=== PATIENT | female | born 1980 | race Caucasian/White ===

== ENCOUNTER 2025-02-23 07:19 | Outpatient (CLI) | payer OTHER, SELFPAY ==
--- NOTE | ~2025-02-23 | MM_ITS ---
EXAMINATION: MM screening [facility] BI w maged INDICATION: Asymptomatic, referred for screening mammogram COMPARISON: None available TECHNIQUE: Digital Breast Tomosynthesis CC, MLO views of Both breasts were obtained with computer-ai ded detection to assist in interpretation of the study. FINDINGS: The breasts are heterogeneously dense, which may obscure small masses. There is an asymmetry seen on the cc view in the Lateral right breast at anterior depth, centered at 2.5 cm posterior to the nipple. Biopsy clip in the right breast. Elsewhere, there are no mammographic features of malignancy. IMPRESSION: 1. Right breast Asymmetry. 2. No evidence of malignancy in the Left breast. RECOMMENDATION: Right breast Diagnostic mammogram with true lateral, appropriate spot compression views and an ultras ound if needed. BI-RADS Category 0: Incomplete: Needs additional imaging evaluation. Reviewed, dictated and finalized at location B. IMPRESSION: 1. Right breast Asymmetry. 2. No evidence of malignancy in the Left breast. RECOMMENDATION: Right breast Diagnostic mammogram with true lateral, appropriate spot compressi on views and an ultrasound if needed. BI-RADS Category 0: Incomplete: Needs additional imaging evaluation.
--- OUTSIDE RECORDS SUMMARY | 2025-02-23 07:26 | XMS_ITS | Encounter Summary ---
Author Organization [facility] Address [address] [facility] [place] [address] Care Team Providers Care Ela Teacher Name Role Phone Niles Yin MOYA Primary Care Provider [phone]- [phone] PersonMoira Primary Care Provid er Encounter Details Date Type Department Care Team (Late st Contact Info) Description 06/02/2018 Lab Requisition [facility] [address] [place] [id number] Unlisted, Ordering Provider, Social History Tobacco Use Types Packs/Day Years Used Date Smoking Tobacco: Never Assessed Comments Unknown Sex and Gender Information Value Date Recorded Sex Assigned at Not on file Legal Sex Female 3:08 PM CDT Gender Identity Not on file Sexual Orientation Not on file documented as of this encounter Plan of Treatment Not on file documented as of this encounter Procedures Procedure Name Priority Date/Time Associated Diagnosis Comments GLUCOSE VITALITY Routine 06/03/2018 7:40 AM CDT HEMOGLOBIN A1C Routine 06/03/2018 7:40 AM CDT LIPID PROFILE Routine 06/03/2018 7:40 AM CDT documented in this encounter Results * HEMOGLOBIN A1C (06/03/2018 7:40 AM CDT) Hemoglobin A1c 5.5 4.4 - 6.3 % 06/03/2018 11:11 AM CDT [facility] Estimated Average Glucose 111 mg/dL 06/03/2018 11:11 AM [facility] Comment: HbA1c Interpretation: Treatment target values recommended by ADA and other clinical organizations should be used to evaluate metabolic control in patients. Treatment Target Values: Normal : < 5.7% Pre-diabetes: 5.7-6.4% Diabetes: Equal to or greater than 6.5% Reference: [place] Diabetes Association Standards of Care in Diabetes -2014 In patients 70 years and older consider HbA1c target range of 7.0-7.5% Reference: Diabetes Mellitus in Older People: Position Statement on behalf of the International Association of Gerontology and Geriatrics (IAGG), the Diabetes Working Democrat for Older People (EDWPOP), and the International Task Force of Experts in Diabetes. Colin Gonzalez et al. J [place] Medical Directors Association. 2012 Test results diagnostic of diabetes should be repeated for confirmation. The Tosoh G8 assay for the measurement of HbA1c is a National Glycohemoglobin Standardization Program (NGSP)certified method. Results for patients with HbE disease should be interpreted with caution as this hemoglobinopathy has been shown to interfere with the Tosoh G8 assay. Blood BLOOD SPECIMEN / Unknown 06/03/2018 7:40 AM CDT 06/03/2018 9:36 AM CDT us Ordering Provider Unlisted MD LAB - CHEMISTRY OR DERABLES Final Result Performing Organization Address City/State/[facility] Co de Phone Number [address] [phone] * LIPID PROFILE (06/03/2018 7:40 AM CDT) [facility] Cholesterol Total 147 <200 mg/dL 06/03/2018 10:53 AM [facility] HDL 58 >40 mg/dL 06/03/2018 10:53 AM [facility] Comment: ATP III Classification of HDL Cholesterol: <40 mg/dL: Considered a major risk factor. >60 mg/dL: Considered a negative risk factor. LDL Calculated 75 <100 mg/dL 06/03/2018 10:53 AM [facility] Comment: ATP III Classification of LDL Cholesterol: <100 mg/dL: Optimal 100 - 129 mg/dL: Near Optimal/Above Optimal 130 - 159 mg/dL: Borderline High 160 - 189 mg/dL: High >190 mg/dL: Very High Triglycerides 72 <150 mg/dL 06/03/2018 10:53 AM CDT [facility] Comment: ATP III Classification of Triglycerides: <150 mg/dL: Normal 150 - 199 mg/dL: Borderline High 200 - 400 mg/dL: High >500 mg/dL: Very High Blood BLOOD SPECIMEN / Unknown 06/03/2018 7:40 AM CDT 06/03/2018 9:36 AM CDT Ordering Provider Unlisted MD LAB - CHEMISTRY OR DERABLES Final Result [address] [phone] * GLUCOSE VITALITY (06/03/2018 7:40 AM CDT) Glucose 83 70 - 115 mg/dL 06/03/2018 10:14 AM CDT [facility] Blood BLOOD SPECIMEN / Unknown 06/03/2018 7:40 AM CDT 06/03/2018 9:36 AM CDT Ordering Provider Unlisted MD LAB - CHEMISTRY OR DERABLES Final Result Performing Organization Address City/[facility] Co de Phone Number [address] [phone] documented in this encounter Visit Diagnoses Not on filedocumented in this encounter Additional Health Concerns Infection Onset Date Last Indicated Resolved Time COVID-19 Under Investigation 08/15/2021 08/15/2021 08/16/2021 6:38 AM INTERNAL MEDICINE DOCTOR documented as of this encounter Care Teams Ela Teacher Relationship Specialty Start Date End Date Yin Cage APRN-CNP [address] [place] [address] PCP - General 03/12/22 12/11/22 Moira Chang APRN-CNP [address] [place] [address] PCP - General 12/12/22 documented as of this encounter
--- OUTSIDE RECORDS SUMMARY | 2025-02-23 07:26 | XMS_ITS | Encounter Summary ---
Author Organization [facility] Address [address] [facility] [place] [address] Care Team Providers Care Machine Repair Person Name Role Phone Niles Yin MOYA Primary Care Provider +1- [phone] PersonMoira Primary Care Provid er Encounter Details Date Type Department Care Team (Late st Contact Info) Description 06/03/2019 Lab Requisition [facility] [address] [place] [id number] Social History Tobacco Use Types Packs/Day Years Used Date Smoking Tobacco: Some Days Cigarettes 0.5 8 Smokeless Tobacco: Never Alcohol Use Standard Drinks/Week Comments Yes 0 (1 standard drink = 0.6 oz pur e alcohol) Comments Unknown Sex and Gender Information Value Date Recorded Sex Assigned at Not on file Legal Sex Female 3:08 PM CDT Gender Identity Not on file Sexual Orientation Not on file documented as of this encounter Plan of Treatment Not on file documented as of this encounter Procedures Procedure Name Priority Date/Time Associated Diagnosis Comments GLUCOSE VITALITY Routine 06/04/2019 8:24 AM CDT HEMOGLOBIN A1C Routine 06/04/2019 8:24 AM CDT LIPID PROFILE Routine 06/04/2019 8:24 AM CDT documented in this encounter Results * HEMOGLOBIN A1C (06/04/2019 8:24 AM CDT) Hemoglobin A1c 5.3 4.4 - 6.3 % 06/04/2019 3:40 PM [facility] Estimated Average Glucose 105 mg/dL 06/04/2019 3:40 PM [facility] Comment: HbA1c Interpretation: Treatment target values recommended by ADA and other clinical organizations should be used to evaluate metabolic control in patients. Treatment Target Values: Normal : < 5.7% Pre-diabetes: 5.7-6.4% Diabetes: Equal to or greater than 6.5% Reference: [place] Diabetes Association Standards of Care in Diabetes -2014 In patients 70 years and older consider HbA1c target range of 7.0-7.5% Reference: Diabetes Mellitus in Older People: Position Statement on behalf of the International Association of Gerontology and Geriatrics (IAGG), the Diabetes Working Constitution Party for Older People (EDWPOP), and the International Task Force of Experts in Diabetes. Colin Gonzalez et al. J [place] Medical Directors Association. 2012 Test results diagnostic of diabetes should be repeated for confirmation. The Sebia Capillary 2 assay for the measurement of HbA1c is a National Glycohemoglobin Standardization Program (NGSP)certified method. Blood BLOOD SPECIMEN / Unknown Lab Venipuncture / Unknown 06/04/2019 8:24 AM CDT 06/04/2019 8:49 AM CDT us LAB - CHEMISTRY ORDERABLES Final Result [address] [phone] * LIPID PROFILE (06/04/2019 8:24 AM CDT) Cholesterol Total 166 <200 mg/dL 06/04/2019 9:27 AM [facility] HDL 70 >40 mg/dL 06/04/2019 9:27 AM [facility] Comment: ATP III Classification of HDL Cholesterol: <40 mg/dL: Considered a major risk factor. >60 mg/dL: Considered a negative risk factor. LDL Calculated 85 <100 mg/dL 06/04/2019 9:27 AM [facility] Comment: ATP III Classification of LDL Cholesterol: <100 mg/dL: Optimal 100 - 129 mg/dL: Near Optimal/Above Optimal 130 - 159 mg/dL: Borderline High 160 - 189 mg/dL: High >190 mg/dL: Very High Triglycerides 53 <150 mg/dL 06/04/2019 9:27 AM CDT [facility] Comment: ATP III Classification of Triglycerides: <150 mg/dL: Normal 150 - 199 mg/dL: Borderline High 200 - 400 mg/dL: High >500 mg/dL: Very High Blood BLOOD SPECIMEN / Unknown Lab Venipuncture / Unknown 06/04/2019 8:24 AM CDT 06/04/2019 8:49 AM CDT us LAB - CHEMISTRY ORDERABLES Final Result [address] [phone] * GLUCOSE VITALITY (06/04/2019 8:24 AM CDT) Glucose 95 70 - 115 mg/dL 06/04/2019 9:10 AM CDT [facility] Blood BLOOD SPECIMEN / Unknown Lab Venipuncture / Unknown 06/04/2019 8:24 AM CDT 06/04/2019 8:49 AM CDT us LAB - CHEMISTRY ORDERABLES Final Result Performing Organization Address City/[facility]/ZIP Co de Phone Number [address] [phone] documented in this encounter Visit Diagnoses Not on filedocumented in this encounter Additional Health Concerns Infection Onset Date Last Indicated Resolved Time COVID-19 Under Investigation 08/15/2021 08/15/2021 08/16/2021 6:38 AM SOFTWARE APPLICATIONS ARCHITECT documented as of this encounter Care Teams Machine Repair Person Relationship Specialty Start Date End Date Yin Cage APRN-CNP [address] [place] [phone] PCP - General 03/12/22 12/11/22 Moira Chang APRN-CNP [address] [place] [address] PCP - General 12/12/22 documented as of this encounter
--- OUTSIDE RECORDS SUMMARY | 2025-02-23 07:27 | XMS_ITS | Clinical Summary ---
Author Organization [facility] Address [facility] [place] [address] Care Team Providers Care South Asian History Professor Name Role Phone None, Provider MD Primary Care Provider Unavaila ble Allergies No known active allergies Medications escitalopram 20 MG tablet Take 20 mg by mouth daily. Active Social History Tobacco Use Types Packs/Day Years Used Date Smoking Tobacco: Former Cigarettes Q uit: 05/05/2021 Smokeless Tobacco: Never Alcohol Use Standard Drinks/Week Comments Not Currently 0 (1 standard drink = 0.6 oz pur e alcohol) Comments No Sex and Gender Information Value Date Recorded Sex Assigned at Not on file Legal Sex Female 5:51 PM CDT Gender Identity Not on file Sexual Orientation Not on file Last Filed Vital Signs Vital Sign Reading Time Taken Comments Blood Pressure 127/70 08/23/2021 7:00 AM HYDRATOR Pulse 78 08/23/2021 7:00 AM HYDRATOR Temperature 36.4 C (97.6 F) 08/23/2021 5:58 AM HYDRATOR Respiratory Rate 18 08/23/2021 7:00 AM HYDRATOR Oxygen Saturation 97% 08/23/2021 7:00 AM HYDRATOR Inhaled Oxygen Concentration - - Weight 99.8 kg (220 lb) 08/23/2021 5:58 AM HYDRATOR Height 170.2 cm (5' 7) 08/23/2021 5:58 AM HYDRATOR Body Mass Index 34.46 08/23/2021 5:58 AM HYDRATOR Plan of Treatment Health Maintenance Due Date Last Done Comments Cervical Cancer Screening Pa p Smear (Age 30 to 64) Every 3 Years 1979 Colorectal Cancer Screening Colonoscopy (10 Years) 1979 Annual Physical 1982 Hepatitis C 1997 Hepatitis B Vaccines (1 of 3 - 19+ 3-dose series) 1998 HPV Vaccines (1 - 3-dose SCD M series) 2006 Cervical Cancer Screening Pa p with HPV Testing (Age 30 to 64) Every 5 Years 2009 Cervical Cancer Screening wi th HPV 2009 Mammogram Screening 2019 COVID-19 Vaccine (3 - 2023-2 5 season) 2024 09/02/2020, 08/12/2020 DTaP, Tdap and Td Vaccines ( 2 - Td or Tdap) 07/07/2031 07/07/2021 Meningococcal B Vaccine Aged Out No l onger eligible based on patient's age to complete this topic Meningococcal Vaccine Aged Out No zenaida servando eligible based on patient's age to complete this topic Pneumococcal Vaccine: Pediatrics (0 to 5 Years) and At-Risk Patients (6 to 49 Years) Aged Out No longer eligible b ased on patient's age to complete this topic RSV Immunizations Under 20 Months Aged Out No longer eligible b ased on patient's age to complete this topic Additional Health Concerns Infection Onset Date Last Indicated MRSA 08/25/2018 08/25/2018 Insurance [facility] Care Teams South Asian History Professor Relationship Specialty Start Date End Date None, Provider, PCP - General 09/30/20
--- OUTSIDE RECORDS SUMMARY | 2025-02-23 07:27 | XMS_ITS | Clinical Summary ---
Author Organization [facility] [employer] Address [address] [place] [address] Care Team Providers Care Log Rider Name Role Phone Person, Moira MOYA Primary Care Provid er Source Comments [facility] [employer],non-owned Affiliates and Associated Physician Practices is amultiple site organization consisting of ambulatory clinics and hospital sitesin [place], [place], [place] and [place]. This disclosure is being madepursuant to the Care Everywhere program and may not contain all information available regarding this patient. Last updated 18.[facility] [employer] Allergies No known active allergies Medications * Be aware that medications may not be up to date on this document. Alwaysverify current medications with the patient. [employer] COVID-19 Ag Home Test KIT 11/16/2022 Active escitalopram (Lexapro) 20 MG tabletIndication s:Depression, unspecified depression type Take 1 (one) tablet by mouth once daily 90 tablet 3 07/10/2023 Active ARIPiprazole (Abilify) 5 MG tabletIndication s:Depression, unspecified depression type Take 1 (one) tablet by mouth at bedtime 90 tablet 4 07/10/2023 Active Active Problems Problem Noted Date Diagnosed Date Depression 01/17/2022 Class 2 obesity without seri ous comorbidity with body mass index (BMI) of 35.0 to 35.9 in adult 01/17/2022 Sleep starts 01/17/2022 Exposure to SARS-associated coronavirus 08/15/19 22 Breast mass, right 08/10/2019 Family history of breast cancer 08/11/2018 Immunizations Immunization Administration Dates Next Due PhoneTell primary monoval ent 12+ yr 0.3mL Purple cap 09/05/2021,09/02/2020,08/12/2020 INFLUENZA VACCINE 06/14/2022,,04/28/2019,2017 INFLUENZA VACCINE, QUADR. (F LUZONE; FLULAVAL; FLUARIX; AFLURIA QUADRIVALENT; 6MO+), 0.5 ML (IIV4) 05/25/2020 TDAP (7yrs+) 07/07/2021 Family History Medical History Relation Name Comments Cystic Fibrosis Daughter 1 15 None Known Father Cancer - Breast Maternal Aunt None Known Mother Cancer - Breast Paternal Aunt Cancer - Breast Paternal Grandmother Relation Name Status Comments Daughter 1 15 Alive Daughter 2 12 Alive Father Maternal Aunt Mother Paternal Aunt Paternal Grandmother Social History Tobacco Use Types Packs/Day Years Used Date Smoking Tobacco: Former Cigarettes 0.5 20 0 09/2001 - 09/2021 Smokeless Tobacco: Never Tobacco Cessation:Counseling Given: Not Answered Alcohol Use Standard Drinks/Week Comments Not Currently 0 (1 standard drink = 0.6 oz pur e alcohol) PHQ-2 Answer Date Recorded Patient Health Questionnaire-2 Score 3 07/10/2023 Comments No Sex and Gender Information Value Date Recorded Sex Assigned at Not on file Legal Sex Female 3:08 PM CDT Gender Identity Not on file Sexual Orientation Not on file Last Filed Vital Signs Vital Sign Reading Time Taken Comments Blood Pressure 125/83 07/10/2023 10:29 AM SKI EDGE PAINTER Pulse 73 07/10/2023 10:29 AM SKI EDGE PAINTER Temperature 36.6 C (97.8 F) 07/10/2023 10:29 AM SKI EDGE PAINTER Respiratory Rate 20 07/07/2021 9:27 AM SKI EDGE PAINTER Oxygen Saturation 98% 07/10/2023 10:29 AM SKI EDGE PAINTER Inhaled Oxygen Concentration - - Weight 100.7 kg (222 lb) 07/10/2023 10:29 AM SKI EDGE PAINTER Height 170.2 cm (5' 7) 07/10/2023 10:29 AM SKI EDGE PAINTER Body Mass Index 34.77 07/10/2023 10:29 AM SKI EDGE PAINTER Plan of Treatment Health Maintenance Due Date Last Done Comments MARITZA (AGES 45-75) - COLON CA SCREENING 1979 COLON MONITORING 1979 COLONOSCOPY - COLON CA SCREENING 1979 CT COLONOGRAPHY - COLON CA SCREENING 1979 Colorectal Cancer Screening 1979 FIT - COLON CA SCREENING 1979 FLEX SIG - COLON CA SCREENING 1979 HEPATITIS B VACCINE (1 of 3 - 19+ 3-dose series) 1998 PAP SMEAR 2000 HPV VACCINE (1 - 3-dose SCDM series) 2006 COVID-19 VACCINE ( season) 2024 09/05/2021, 09/05/2021, 09/02/2020, Additional history exists DEPRESSION SCREENING 08/05/2024 07/10/2023, 07/09/2022, 02/06/2022, Additional history exists SCREENING FOR DIABETES 01/09/2025 , 01/09/2022, 08/23/2021, Additional history exists MAMMOGRAM 02/07/2025 02/07/2023, 07/0 12/2021, 08/10/2019, Additional history exists INFLUENZA VACCINE (#1) 2025 , 04/26/2021, 05/25/2020, Additional history exists LIPID TESTING 01/09/2027 01/09/2022, 05/07, 06/03/2018, Additional history exists ZOSTER VACCINE (1 of 2) 2029 DTAP/TDAP/TD VACCINES (2 - Td or Tdap) 07/07/2031 07/07/2021 HEPATITIS C SCREENING Completed 06/05/2018 (Done Outside Per Patient) HIV SCREENING Completed 06/05/2018 (Done Outside Per Patient) HIB VACCINE Aged Out No longer eligi ble based on patient's age to complete this topic MENINGOCOCCAL (Group B) VACCINE SHARED DECISION-MAKING Aged Out No longer eligible based on patient's age to complete this topic MENINGOCOCCAL GROUPS A/C/Y/W VACCINE Aged Out No longer eligible based on patient's age to complete this topic PNEUMOCOCCAL VACCINE Aged Out No long er eligible based on patient's age to complete this topic Procedures Procedure Name Priority Date/Time Associated Diagnosis Comments MAMMO BILAT SCREENING W KARON Routine 02/07/2023 11:50 AM CDT Breast cancer screening by mammogram COMPREHENSIVE METABOLIC PANEL Routine 01/09/2022 2:18 PM CDT Healthcare maintenance Class 2 obesity without serious comorbidity with body mass index (BMI) of 35.0 to 35.9 in adult, unspecified obesity type LIPID PROFILE Routine 01/09/2022 2:18 PM CDT Class 2 obesity without serious comorbidity with body mass index (BMI) of 35.0 to 35.9 in adult, unspecified obesity type from Last 3 Months or Most Recently Relevant to Health Maintenance Results * MAMMO BILAT SCREENING W KARON (02/07/2023 11:50 AM CDT) Anatomical Region Laterality Modality Breast Bilateral Mammography 02/07/2023 2:16 PM CDT Impressions 02/07/2023 2:28 PM CDT : Benign mammogram, without evidence of malignancy. Dense breast parenchyma. RECOMMENDATION: 1. Screening mammography in one year, pending no interval breast concerns. 2. Given her dense breast parenchyma and moderate increased risk of developing breast cancer, consider annual complete breast ultrasound or contrasted breast MRI scan for supplemental screening. This can be alternated at 6 month intervals with mammography or performed near the time of screening mammography. If there are any questions, please call [phone]. OVERALL ASSESSMENT: BI-RADS CATEGORY 2: BENIGN. > Interpreting Provider: Radha Espinal MD on 02/07/2023 2:28 PM Narrative 02/07/2023 2:28 PM CDT EXAMINATION: DIGITAL MAMMO BILAT SCREENING W KARON AND WITH CAD LOCATION: [facility] EXAM DATE: 02/07/2023 HISTORY: Screening. Family history of breast cancer in a maternal aunt. Previous benign right breast biopsy. RISK ASSESSMENT CALCULATION: Patient completed a breast cancer risk assessment during her appointment. Based upon the information she provided and her mammographic breast density, her lifetime risk of developing breast cancer is 19.8 % (Average Risk <15%; Intermediate / Moderate Risk 15-19%; High Risk > 20%). Given her moderate increased risk of developing breast cancer and dense breast parenchyma, consider complete breast ultrasound for supplemental screening and this can be performed at 6-month intervals with screening mammography or the time of screening mammography. For further information, please call [phone]. COMPARISON: Compare prior mammograms back to 2019. TECHNIQUE: Tomosynthesis (3D) and reconstructed synthetic 2-D images acquired and reviewed in the bilateral craniocaudal and mediolateral oblique projections.. A total of images obtained. Computer-aided detection (CAD) was utilized. BREAST PARENCHYMAL COMPOSITION: Category C: The breasts are heterogeneously dense which may obscure small masses. FINDINGS: There are no suspicious findings or evidence of malignancy on mammography. Biopsy clip in the right breast. There is no significant change from the prior. us Moira Yolaneetu Chang BAKING FACTORY WORKER-TIRE ASSEMBLER MAMMO ORDERABLES Fin al Result * (ABNORMAL) COMPREHENSIVE METABOLIC PANEL (01/09/2022 2:18 PM CDT) Glucose 73 65 - 99 mg/dL [facility] INSURANCE BILL BUN 4(L) 6 - 24 mg/dL [facility] INSURANCE BILL Creatinine 0.74 0.57 - 1.00 mg/dL [facility] INSURANCE BILL eGFR by CKD-EPI 104 >59 mL/min/1.7 3 [facility] INSURANCE BILL BUN/Creatinine Ratio 5(L) 9 - 23 [facility] INSURANCE BILL Sodium 136 134 - 144 mmol/L [facility] INSURANCE BILL Potassium 4.0 3.5 - 5.2 mmol/L [facility] INSURANCE BILL Chloride 99 96 - 106 mmol/L [facility] INSURANCE BILL CO2 19(L) 20 - 29 mmol/L [facility] INSURANCE BILL Calcium 9.3 8.7 - 10.2 mg/dL [facility] INSURANCE BILL Protein Total 6.9 6.0 - 8.5 g/dL [facility] INSURANCE BILL Albumin 4.7 3.8 - 4.8 g/dL [facility] INSURANCE BILL Globulin Total 2.2 1.5 - 4.5 g/dL [facility] INSURANCE BILL Albumin/Globulin Ratio 2.1 1.2 - 2.2 [facility] INSURANCE BILL Bilirubin Total 0.3 0.0 - 1.2 mg/dL [facility] INSURANCE BILL Alkaline Phosphatase 54 44 - 121 IU/L [facility] INSURANCE BILL AST 15 0 - 40 IU/L [facility] INSURANCE BILL ALT 12 0 - 32 IU/L [facility] INSURANCE BILL Comment:FASTING Blood BLOOD SPECIMEN / Unknown 01/09/2022 2:18 PM CDT 01/09/2022 Narrative Resulting Agency Comment Lab Testing performed at: [facility] [address] [id number] Zoila Yong BAKING FACTORY WORKER-TIRE ASSEMBLER LAB - CHEMISTRY ORDERAB LES Final Result Performing Organization Address City/[facility] Co de Phone Number [facility] INSURANCE BILL [address] [place] [address] * (ABNORMAL) LIPID PROFILE (01/09/2022 2:18 PM CDT) Cholesterol 199 100 - 199 mg/dL [facility] INSURANCE BILL Triglycerides 85 0 - 149 mg/dL [facility] INSURANCE BILL HDL Cholesterol 58 >39 mg/dL [facility] INSURANCE BILL VLDL Calculated 15 5 - 40 mg/dL [facility] INSURANCE BILL LDL Calculated 126(H) 0 - 99 mg/dL [facility] INSURANCE BILL Comment NOT NEEDED [facility] INSURANCE BILL Comment: FASTING Ancillary determined the test is not needed. Blood BLOOD SPECIMEN / Unknown 01/09/2022 2:18 PM CDT 01/09/2022 Narrative Resulting Agency Comment Lab Testing performed at: [facility] [address] [id number] Zoila Yong BAKING FACTORY WORKER-TIRE ASSEMBLER LAB - CHEMISTRY ORDERAB LES Final Result Performing Organization Address City/[facility] Co de Phone Number [facility] INSURANCE BILL [address] [place] [address] from Last 3 Months or Most Recently Relevant to Health Maintenance Insurance Care Teams Log Rider Relationship Specialty Start Date End Date Person, NITA Gaines PCP - General 12/12/22
== END 2025-02-23 07:20 | disposition home or self-care (01) ==
LOC: CHSIMG 07:24
PROVIDERS: Visit Provider Nurse Practitioner
DX: Z12.31 Encounter for screening mammogram for malignant neoplasm of breast (principal); R92.8 Other abnormal and inconclusive findings on diagnostic imaging of breast
CPT/HCPCS: 77063; 77067

== ENCOUNTER 2025-03-04 09:41 | Outpatient (CLI) | payer OTHER, SELFPAY ==
--- NOTE | ~2025-03-04 | MMUS_ITS ---
EXAMINATION: MM diagnostic calvin RT w maged, US breast RT complete HISTORY: Follow-up right breast asymmetry. TECHNIQUE: Additional 3-D tomosynthesis images of the right breast were performed and synthetic 2-D i mages were generated. CAD analysis was submitted and interpreted. High resolution complete right giovany st ultrasound was performed. COMPARISON: 02/23/2025 BREAST PARENCHYMAL COMPOSITION: Dense: The breasts are heterogeneously dense, which may obscure small masses. FINDINGS: MAMMOGRAPHIC FINDINGS: There is a obscured mass in the lower outer quadrant of the right breast, anterior third. There are n o suspicious calcifications or architectural distortion. ULTRASOUND: Complete US of all 4 quadrants of the right breast/s and retroareolar region was reviewed. At 12:00 n ear the nipple there is a 9 mm cyst with low-level internal echoes. At 12:00 near the nipple there is an 11 mm cyst. At 10:00, 6 cm from the nipple there is a 9 mm cyst. IMPRESSION: 1. No evidence for malignancy in the right breast. Benign cysts. 2. Routine yearly screening mammogram and regular clinical breast examination are recommended. BI-RADS Category 2: Benign finding(s). Reviewed, dictated and finalized at location B. IMPRESSION: 1. No evidence for malignancy in the right breast. Benign cysts. 2. Routine yearly screening mammogram and regular clinical breast examination a re recommended. BI-RADS Category 2: Benign finding(s).
--- OUTSIDE RECORDS SUMMARY | 2025-03-04 09:53 | XMS_ITS | Clinical Summary ---
Author Organization [facility] Address [address] [place] [address] Care Team Providers Care Ceramist Name Role Phone Person, Moira MOYA Primary Care Provid er Source Comments [facility],non-owned Affiliates and Associated Physician Practices is amultiple site organization consisting of ambulatory clinics and hospital sitesin [place], [place], [place]. This disclosure is being madepursuant to the Care Everywhere program and may not contain all information available regarding this patient. Last updated 18.[facility] Allergies No known active allergies Medications * [...] 08/11/2018 Immunizations Immunization Administration Dates Next Due [employer] primary monoval ent 12+ yr 0.3mL Purple [...] Comments Blood Pressure 125/83 07/10/2023 10:29 AM SET KEY DRIVER Pulse 73 07/10/2023 10:29 AM SET KEY DRIVER Temperature 36.6 C (97.8 F) 07/10/2023 10:29 AM SET KEY DRIVER Respiratory Rate 20 07/07/2021 9:27 AM SET KEY DRIVER Oxygen Saturation 98% 07/10/2023 10:29 AM SET KEY DRIVER Inhaled Oxygen Concentration - - Weight 100.7 kg (222 lb) 07/10/2023 10:29 AM SET KEY DRIVER Height 170.2 cm (5' 7) 07/10/2023 10:29 AM SET KEY DRIVER Body Mass Index 34.77 07/10/2023 10:29 AM SET KEY DRIVER Plan of Treatment Health Maintenance Due Date [...] If there are any questions, please call [phone]. OVERALL ASSESSMENT: BI-RADS CATEGORY 2: BENIGN. > Interpreting Provider: Radha Espinal MD on 02/07/2023 2:28 PM Narrative 02/07/2023 2:28 PM CDT EXAMINATION: DIGITAL MAMMO BILAT SCREENING W KARON AND WITH CAD LOCATION: [facility] [place] [facility] EXAM DATE: 02/07/2023 HISTORY: Screening. Family history [...] screening mammography. For further information, please call [phone]. COMPARISON: Compare prior mammograms back to 2019. [...] from the prior. us Moira Yolaneetu Chang APPLIED RESEARCH DIRECTOR-ZINC PLATE CUTTER MAMMO ORDERABLES Fin al Result * (ABNORMAL) [...] Resulting Agency Comment Lab Testing performed at: [email or web address] [address] [id number] Zoila Yong APPLIED RESEARCH DIRECTOR-ZINC PLATE CUTTER LAB - CHEMISTRY ORDERAB LES Final Result Performing Organization Address City/[facility] Co de Phone Number [facility] INSURANCE BILL [address] [place] [address] * (ABNORMAL) LIPID PROFILE (01/09/2022 2:18 PM [...] Resulting Agency Comment Lab Testing performed at: [email or web address] [address] [id number] Zoila Yong APPLIED RESEARCH DIRECTOR-ZINC PLATE CUTTER LAB - CHEMISTRY ORDERAB LES Final Result Performing Organization Address City/[facility] Co de Phone Number [facility] INSURANCE BILL [address] [place] [address] from Last 3 Months or Most Recently Relevant to Health Maintenance Insurance Care Teams Ceramist Relationship Specialty Start Date End Date Person, NITA Gaines PCP - General 12/12/22
--- OUTSIDE RECORDS SUMMARY | 2025-03-04 09:53 | XMS_ITS | Encounter Summary ---
Author Organization [facility] Address [address] [place] [address] Care Team Providers Care Electric Meter Repairer Name Role Phone Niles Yin MOYA Primary Care Provider [phone]- [phone] PersonMoira Primary Care Provid er Encounter Details Date Type Department Care Team (Late st Contact Info) Description 06/02/2018 Lab Requisition [facility] [address] [place] [id number] Unlisted, Ordering Provider, Social History Tobacco Use [...] - 6.3 % 06/03/2018 11:11 AM CDT [facility] Estimated Average Glucose 111 mg/dL 06/03/2018 11:11 AM [facility] Comment: HbA1c Interpretation: Treatment target values recommended by ADA and other clinical organizations should be used to evaluate metabolic control in patients. Treatment Target Values: Normal : < 5.7% Pre-diabetes: 5.7-6.4% Diabetes: Equal to or greater than 6.5% Reference: [place] Diabetes Association Standards of Care in Diabetes -2014 In patients 70 years and older consider HbA1c target range of 7.0-7.5% Reference: Diabetes Mellitus in Older People: Position Statement on behalf of the International Association of Gerontology and Geriatrics (IAGG), the Diabetes Working Republican for Older People (EDWPOP), and the International Task Force of Experts in Diabetes. Colin Gonzalez et al. J [place] [employer] Association. 2012 Test results diagnostic [...] OR DERABLES Final Result Performing Organization Address City/State/[facility] Co de Phone Number [address] [phone] * LIPID PROFILE (06/03/2018 7:40 AM CDT) [facility] Signature Cholesterol Total 147 <200 mg/dL 06/03/2018 10:53 AM [facility] HDL 58 >40 mg/dL 06/03/2018 10:53 AM [facility] Comment: ATP III Classification of HDL Cholesterol: <40 mg/dL: Considered a major risk factor. >60 mg/dL: Considered a negative risk factor. LDL Calculated 75 <100 mg/dL 06/03/2018 10:53 AM [facility] Comment: ATP III Classification of LDL Cholesterol: <100 mg/dL: Optimal 100 - 129 mg/dL: Near Optimal/Above Optimal 130 - 159 mg/dL: Borderline High 160 - 189 mg/dL: High >190 mg/dL: Very High Triglycerides 72 <150 mg/dL 06/03/2018 10:53 AM CDT [facility] Comment: ATP III Classification of Triglycerides: <150 mg/dL: Normal 150 - 199 mg/dL: Borderline High 200 - 400 mg/dL: High >500 mg/dL: Very High Blood BLOOD SPECIMEN / Unknown 06/03/2018 7:40 AM CDT 06/03/2018 9:36 AM CDT Ordering Provider Unlisted MD LAB - CHEMISTRY OR DERABLES Final Result [address] [phone] * GLUCOSE VITALITY (06/03/2018 7:40 AM CDT) Glucose 83 70 - 115 mg/dL 06/03/2018 10:14 AM CDT [facility] Blood BLOOD SPECIMEN / Unknown 06/03/2018 7:40 AM CDT 06/03/2018 9:36 AM CDT Ordering Provider Unlisted MD LAB - CHEMISTRY OR DERABLES Final Result Performing Organization Address City/[facility] Co de Phone Number [address] [phone] documented in this encounter Visit Diagnoses Not on filedocumented in this encounter Additional Health Concerns Infection Onset Date Last Indicated Resolved Time COVID-19 Under Investigation 08/15/2021 08/15/2021 08/16/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
--- OUTSIDE RECORDS SUMMARY | 2025-03-04 09:53 | XMS_ITS | Encounter Summary ---
Author Organization [facility] Address [address] [place] [address] Care Team Providers Care Rock Dust Sprayer Name Role Phone Niles Yin MOYA Primary Care Provider +1- [phone] PersonMoira Primary Care Provid er Encounter Details Date Type Department Care Team (Late st Contact Info) Description 06/03/2019 Lab Requisition [facility] [address] [place] [phone] Social History Tobacco Use Types Packs/Day Years [...] 4.4 - 6.3 % 06/04/2019 3:40 PM [facility] Estimated Average Glucose 105 mg/dL 06/04/2019 3:40 PM [facility] Comment: HbA1c Interpretation: Treatment target values recommended by ADA and other clinical organizations should be used to evaluate metabolic control in patients. Treatment Target Values: Normal : < 5.7% Pre-diabetes: 5.7-6.4% Diabetes: Equal to or greater than 6.5% Reference: [place] Diabetes Association Standards of Care in Diabetes -2014 In patients 70 years and older consider HbA1c target range of 7.0-7.5% Reference: Diabetes Mellitus in Older People: Position Statement on behalf of the International Association of Gerontology and Geriatrics (IAGG), the Diabetes Working Green [employer] for Older People (EDWPOP), and the International Task Force of Experts in Diabetes. Colin Gonzalez et al. J [place] [employer]. 2012 Test results diagnostic of diabetes should be repeated for confirmation. The Sebia Capillary 2 assay for the measurement of HbA1c is a National Glycohemoglobin Standardization Program (NGSP)certified method. Blood BLOOD SPECIMEN / Unknown Lab Venipuncture / Unknown 06/04/2019 8:24 AM CDT 06/04/2019 8:49 AM CDT us LAB - CHEMISTRY ORDERABLES Final Result [address] [phone] * LIPID PROFILE (06/04/2019 8:24 AM CDT) Cholesterol Total 166 <200 mg/dL 06/04/2019 9:27 AM [facility] HDL 70 >40 mg/dL 06/04/2019 9:27 AM [facility] Comment: ATP III Classification of HDL Cholesterol: <40 mg/dL: Considered a major risk factor. >60 mg/dL: Considered a negative risk factor. LDL Calculated 85 <100 mg/dL 06/04/2019 9:27 AM [facility] Comment: ATP III Classification of LDL Cholesterol: <100 mg/dL: Optimal 100 - 129 mg/dL: Near Optimal/Above Optimal 130 - 159 mg/dL: Borderline High 160 - 189 mg/dL: High >190 mg/dL: Very High Triglycerides 53 <150 mg/dL 06/04/2019 9:27 AM CDT [facility] Comment: ATP III Classification of Triglycerides: <150 mg/dL: Normal 150 - 199 mg/dL: Borderline High 200 - 400 mg/dL: High >500 mg/dL: Very High Blood BLOOD SPECIMEN / Unknown Lab Venipuncture / Unknown 06/04/2019 8:24 AM CDT 06/04/2019 8:49 AM CDT us LAB - CHEMISTRY ORDERABLES Final Result [address] [phone] * GLUCOSE VITALITY (06/04/2019 8:24 AM CDT) Glucose 95 70 - 115 mg/dL 06/04/2019 9:10 AM CDT [facility] Blood BLOOD SPECIMEN / Unknown Lab Venipuncture / Unknown 06/04/2019 8:24 AM CDT 06/04/2019 8:49 AM CDT us LAB - CHEMISTRY ORDERABLES Final Result Performing Organization Address City/[facility]/ZIP Co de Phone Number [address] [phone] documented in this encounter Visit Diagnoses Not on filedocumented in this encounter Additional Health Concerns Infection Onset Date Last Indicated Resolved Time COVID-19 Under Investigation 08/15/2021 08/15/2021 08/16/2021 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
== END 2025-03-04 09:42 | disposition home or self-care (01) ==
LOC: CHSIMG 09:43
PROVIDERS: Visit Provider Obstetrics & Gynecology Gynecology
DX: R92.8 Other abnormal and inconclusive findings on diagnostic imaging of breast (principal)
CPT/HCPCS: 76641; 77061; 77065; G0279